=== PATIENT | male | born 1970 | race Caucasian/White ===

== ENCOUNTER 2022-07-13 17:35 | Emergency (ER) | payer MEDICARE, MEDICAID ==
[~2022-07-13] VITALS: Ht 167.6 cm; Wt 72.7 kg
[~2022-07-13 17:35] MED LIST: BACL10TA PO
[2022-07-13 17:40] VITALS: BP 116/75
== END 2022-07-13 19:07 | disposition left against medical advice (07) ==
LOC: EMS 17:48
DX: M79.672 Pain in left foot (principal); F20.9 Schizophrenia, unspecified; F17.210 Nicotine dependence, cigarettes, uncomplicated; F15.90 Other stimulant use, unspecified, uncomplicated; F12.90 Cannabis use, unspecified, uncomplicated; Z98.890 Other specified postprocedural states
CPT/HCPCS: 99281; Z7502